=== PATIENT | female | born 1945 | race Asian ===

== ENCOUNTER 2016-10-04 21:39 | Observation (INO) | payer OTHER ==
[2016-10-04] MEDS ORDERED: ASPIRIN 81 MG CHEWABLE TABLETS PO ONE (21:49)
[2016-10-04 22:01] VITALS: BMI 29.2
--- NOTE | 2016-10-04 22:03 | PDOC ---
History of Present Illness - General History Source: Patient Exam Limitations: No Limitations - History of Present Illness Initial Comments: 10/04/16 22:43 The patient is a 71-year-old Pashto female, with a significant past medical history of thyroid disorder and cardiac disease (pt cannot specify), who presents to the ED with chest pain. Pt felt normal this morning. After eating lunch she began to experience difficulty breathing and some midsternal chest tightness. The pt tried to go to sleep by woke up again feeling short of breath. The chest tightness lasted for several hours and the shortness of breath lasted several minutes. The patients neighbor noted that the pt appeared blue in color and advised her to visit the ED. Pt reports taking baby aspirin today. The patient denies any fever, chills, nausea, vomiting, diarrhea, or abdominal pain. <Jackie Pastrana - Last Filed: 10/04/16 22:43> - General History Source: Patient Exam Limitations: No Limitations <Kevin Gage - Last Filed: 10/05/16 00:23> - General Chief Complaint: Chest Pain Stated Complaint: S.O.B. Time Seen by Provider: 10/04/16 21:48 Past History <Jackie Pastrana - Last Filed: 10/04/16 22:43> <Kevin Gage - Last Filed: 10/05/16 00:23> - Past Medical History Allergies/Adverse Reactions: Allergies Allergy/AdvReac Type Severity Reaction Status Date / Time No Known Allergies Allergy Verified 10/04/16 21:42 Home Medications: Ambulatory Orders Aspirin [ASA -] 81 mg PO DAILY 10/04/16 Review of Systems - Review of Systems Able to Perform ROS?: Yes Comments:: 10/04/16 22:43 GENERAL/CONSTITUTIONAL: No fever or chills. No weakness. HEAD, EYES, EARS, NOSE AND THROAT: No change in vision. No ear pain or discharge. No sore throat. CARDIOVASCULAR: (+)chest pain, shortness of breath. RESPIRATORY: No cough, wheezing, or hemoptysis. GASTROINTESTINAL: No nausea, vomiting, diarrhea or constipation. GENITOURINARY: No dysuria, frequency, or change in urination. MUSCULOSKELETAL: No joint or muscle swelling or pain. No neck or back pain. SKIN: No rash NEUROLOGIC: No headache, vertigo, loss of consciousness, or change in strength/ sensation. ENDOCRINE: No increased thirst. No abnormal weight change. HEMATOLOGIC/LYMPHATIC: No anemia, easy bleeding, or history of blood clots. ALLERGIC/IMMUNOLOGIC: No hives or skin allergy. <Jackie Pastrana - Last Filed: 10/04/16 22:43> *Physical Exam - Vital Signs Last Vital Signs Temp Pulse Resp BP Pulse Ox 97.3 F L 66 22 133/74 93 L 10/04/16 21:42 10/04/16 21:42 10/04/16 21:42 10/04/16 21:42 10/04/16 21:42 - Physical Exam Comments: 10/04/16 22:44 GENERAL: Awake, alert, and fully oriented, in no acute distress HEAD: No signs of trauma EYES: PERRLA, EOMI, sclera anicteric, conjunctiva clear ENT: Auricles normal inspection, hearing grossly normal, nares patent, oropharynx clear without exudates. Moist mucosa NECK: Normal ROM, supple, no lymphadenopathy, JVD, or masses LUNGS: Breath sounds equal, clear to auscultation bilaterally. No wheezes, and no crackles HEART: Regular rate and rhythm, normal S1 and S2, no murmurs, rubs or gallops ABDOMEN: Soft, nontender, normoactive bowel sounds. No guarding, no rebound. No masses EXTREMITIES: Normal range of motion, no edema. No clubbing or cyanosis. No cords, erythema, or tenderness NEUROLOGICAL: Cranial nerves II through XII grossly intact. Normal speech, normal gait SKIN: Warm, Dry, normal turgor, no rashes or lesions noted <Jackie Pastrana - Last Filed: 10/04/16 22:43> Heart Score/ECG Review #1 ECG reviewed & interpreted by me at: 22:00 10/04/16 22:26 NSR 66, TWI III, T wave flat II, avF, II, V3-V6, no std/annette, QTC 425 msec <Kevin Gage - Last Filed: 10/05/16 00:23> ED Treatment Course - LABORATORY CBC & Chemistry Diagram: 10/04/16 22:06 10/04/16 22:06 - ADDITIONAL ORDERS Additional order review: Laboratory Results 10/04/16 22:06 INR 0.99 PTT (Actin FS) 34.6 H 10/04/16 22:06 RBC 4.41 MCV 87.2 MCHC 33.8 RDW 13.2 MPV 10.5 Neutrophils % 66.4 Lymphocytes % 17.8 Monocytes % 9.8 Eosinophils % 5.3 H Basophils % 0.7 - Medications Given in the ED: ED Medications Discontinued Medications Generic Name Dose Route Start Last Admin Trade Name Félix PRN Reason Stop Dose Admin Aspirin 243 mg 10/04/16 21:49 10/04/16 22:15 Asa - PO 10/04/16 21:50 243 mg ONCE ONE Administration <Jackie Pastrana - Last Filed: 10/04/16 22:43> - LABORATORY CBC & Chemistry Diagram: 10/04/16 22:06 10/04/16 22:06 - RADIOLOGY Radiology Studies Ordered: Category Date Time Status CHEST X-RAY PORTABLE* [RAD] Stat Radiology 10/04/16 21:49 Ordered <Kevin Gage - Last Filed: 10/05/16 00:23> Medical Decision Making - Medical Decision Making 10/04/16 21:54 A portion of this note was documented by scribe services under my direction. I have reviewed the details of the note, within reason, and agree with the documentation with the following case summary and management plan written by me. Patient treated in the ED. Patient arrives by ambulance to the emergency department. Nursing notes are reviewed and incorporated into the medical decision-making. Vital signs reviewed. Peripheral IV access obtained by the nurse, laboratory studies are drawn and sent, reviewed and interpreted by myself. History taken with Pashto phone certified court interpreter. 71 year old Pashto female with history of thyroid disorder, cardiac disease ( though patient cannot specify exact cardiac disease) presents with chest pain. The patient reports that she was in her usual state of health this morning. Around lunch time, the patient was eating lunch and suddenly felt difficulty breathing and some midsternal chest tightness. There was no radiation. No vomiting. She reported that she tried to go to sleep but woke up again with shortness of breath. The chest tightness lasted for several hours and the SOB lasted several minutes. She had went to her neighbor's home and noted that she appeared dusky and bluish and her friend advised her to go to the ER. She denies recent illnesses. She reports that she had taken a baby aspirin today. Given the circumstances, the patient will need to be ruled out myocardial infarction. Will complete her aspirin, obtain a troponin and chest xray and admit the patient to the hospital. 10/05/16 00:22 Chest xray reviewed, pending official reads. no acute findings. CBC, BMP 10/04/16 22:06 10/04/16 22:06 CMP Sodium 140 mmol/L (136-145) 10/04/16 22:06 Potassium 4.0 mmol/L (3.5-5.1) 10/04/16 22:06 Chloride 107 mmol/L (98-107) 10/04/16 22:06 Carbon Dioxide 26 mmol/L (21-32) 10/04/16 22:06 Anion Gap 7 (8-16) L 10/04/16 22:06 BUN 14 mg/dL (7-18) 10/04/16 22:06 Creatinine 0.6 mg/dL (0.55-1.02) 10/04/16 22:06 Creat Clearance w eGFR > 60 (>60) 10/04/16 22:06 Random Glucose 122 mg/dL (74-106) H 10/04/16 22:06 Calcium 9.4 mg/dL (8.5-10.1) 10/04/16 22:06 Total Bilirubin 1.0 mg/dL (0.2-1.0) 10/04/16 22:06 AST 26 U/L (15-37) 10/04/16 22:06 ALT 34 U/L (12-78) 10/04/16 22:06 Alkaline Phosphatase 98 U/L (45-117) 10/04/16 22:06 Creatine Kinase 50 IU/L (26-192) 10/04/16 22:06 Troponin I < 0.02 ng/ml (0.00-0.05) 10/04/16 22:06 Total Protein 7.2 g/dl (6.4-8.2) 10/04/16 22:06 Albumin 3.7 g/dl (3.4-5.0) 10/04/16 22:06 Patient reassessed. No chest pain. Case discussed with Dr. Kurtz. Accepts patient for telemetry admission. Case discussed in detail with admitting physician including history, physical exam and ancillary studies. Admitting physician has assumed care for the patient, will follow all pending diagnostics and will complete the evaluation and treatment. <Kevin Gage - Last Filed: 10/05/16 00:23> *DC/Admit/Observation/Transfer - Attestations Scribe Attestion: 10/04/16 22:45 Documentation prepared by Jackie Pastrana, acting as director medical affairs for Kevin Gage MD. <Jackie Pastrana - Last Filed: 10/04/16 22:43> - Discharge Dispostion Admit: Yes <Kevin Gage - Last Filed: 10/05/16 00:23> Diagnosis at time of Disposition: Chest pain Qualifiers: Chest pain type: unspecified Qualified Code(s): R07.9 - Chest pain, unspecified - Discharge Dispostion Condition at time of disposition: Stable
[2016-10-04] MEDS ORDERED: ASPIRIN 81 MG CHEWABLE TABLETS ONE (22:14)
[2016-10-04 22:23] LABS: BASOPHIL 0.7 % (0-2.0); EOSINOPHIL 5.3 % (0-4.5); MCH 29.5 pg (25.7-33.7); MCHC 33.8 g/dl (32.0-36.0); MEAN CELL VOLUME 87.2 fl (80-96); MEAN PLT VOLUME 10.5 fl (7.5-11.1); NEUTROPHILS 66.4 % (42.8-82.8); PLATELET COUNT 182 K/MM3 (134-434); RDW 13.2 % (11.6-15.6); WHITE BLOOD COUNT 7.5 K/mm3 (4.0-10.0)
[2016-10-04 22:34] LABS: INR 0.99 (0.82-1.09); PROTHROMBIN TIME (PATIENT) 10.9 SEC (9.98-11.88)
[2016-10-04 22:36] LABS: ACTIVATED PTT 34.6 SECONDS (26.9-34.4)
[2016-10-04 22:51] LABS: ALBUMIN 3.7 g/dl (3.4-5.0); ANION GAP 7 (8-16); CALCIUM 9.4 mg/dL (8.5-10.1); CO2 26 mmol/L (21-32); GLUCOSE,RANDOM 122 mg/dL (74-106)
[2016-10-04 22:56] LABS: ALK PHOS 98 U/L (45-117); CREATININE 0.6 mg/dL (0.55-1.02); SGOT/AST 26 U/L (15-37); SGPT/ALT 34 U/L (12-78); TOT PROT 7.2 g/dl (6.4-8.2); TROPONIN I < 0.02 ng/ml (0.00-0.05)
--- NOTE | 2016-10-04 23:18 | PN ---
<Loida Kurtz - Last Filed: 10/04/16 23:17> Teaching Attending Note Name of Resident: Saqib Cooley <Kwame Bower - Last Filed: 10/05/16 02:24> Teaching Attending Note ATTENDING PHYSICIAN STATEMENT I saw and evaluated the patient. I reviewed the resident's note and discussed the case with the resident. I agree with the resident's findings and plan as documented. SUBJECTIVE: The patient is a 71-year-old female, who presented to the Emergency Department with chest pain. Patient reported that she was at baseline this morning but, after eating lunch she began to experience difficulty breathing and some midsternal chest tightness. The patient tried to go to sleep but woke up again feeling short of breath. The patient stated that her chest tightness lasted for several hours and her shortness of breath lasted several minutes. The patients neighbor noted that the patient appeared blue in color and advised her to visit the Emergency Department. The patient reported taking baby aspirin today to treat symptoms and noted mild alleviation. The patient denied any fever, chills, nausea, vomiting, diarrhea, or abdominal pain. Past Medical History: Thyroid disorder and cardiac disease, OBJECTIVE: Vital Signs: Last Vital Signs Temp Pulse Resp BP Pulse Ox 97.3 F L 66 22 133/74 99 10/04/16 21:42 10/04/16 21:42 10/04/16 21:42 10/04/16 21:42 10/04/16 22:38 GENERAL: Awake, alert, and fully oriented, in no acute distress HEENT: Atraumatic. PERRLA, EOMI. No JVD. (+) No thyromegaly no masses appreciated LUNGS: No distress, speaks full sentences, clear to auscultation bilaterally HEART: Regular rate and rhythm, normal S1 and S2 (+) Chest pain not reproducible on palpation. No murmursm, gallops, or rubs ABDOMEN: Soft, nontender, normoactive bowel sounds. No guarding, no rebound. No masses EXTREMITIES: Normal inspection, Normal range of motion, no edema. No clubbing or cyanosis. NEUROLOGICAL: Cranial nerves II through XII grossly intact. Normal speech, normal gait, no focal sensorimotor deficits SKIN: Warm, Dry, normal turgor, no rashes or lesions noted. Labs: CBCD WBC 7.5 K/mm3 (4.0-10.0) 10/04/16 22:06 RBC 4.41 M/mm3 (3.60-5.2) 10/04/16 22:06 Hgb 13.0 GM/dL (10.7-15.3) 10/04/16 22:06 Hct 38.5 % (32.4-45.2) 10/04/16 22:06 MCV 87.2 fl (80-96) 10/04/16 22:06 MCHC 33.8 g/dl (32.0-36.0) 10/04/16 22:06 RDW 13.2 % (11.6-15.6) 10/04/16 22:06 Plt Count 182 K/MM3 (134-434) 10/04/16 22:06 MPV 10.5 fl (7.5-11.1) 10/04/16 22:06 CMP Sodium 140 mmol/L (136-145) 10/04/16 22:06 Potassium 4.0 mmol/L (3.5-5.1) 10/04/16 22:06 Chloride 107 mmol/L (98-107) 10/04/16 22:06 Carbon Dioxide 26 mmol/L (21-32) 10/04/16 22:06 Anion Gap 7 (8-16) L 10/04/16 22:06 BUN 14 mg/dL (7-18) 10/04/16 22:06 Creatinine 0.6 mg/dL (0.55-1.02) 10/04/16 22:06 Creat Clearance w eGFR > 60 (>60) 10/04/16 22:06 Calcium 9.4 mg/dL (8.5-10.1) 10/04/16 22:06 Total Bilirubin 1.0 mg/dL (0.2-1.0) 10/04/16 22:06 AST 26 U/L (15-37) 10/04/16 22:06 ALT 34 U/L (12-78) 10/04/16 22:06 Alkaline Phosphatase 98 U/L (45-117) 10/04/16 22:06 Total Protein 7.2 g/dl (6.4-8.2) 10/04/16 22:06 Albumin 3.7 g/dl (3.4-5.0) 10/04/16 22:06 Imagin. CXR - pending official read. No acute findings. ASSESSMENT AND PLAN: 1. Chest Pain rule out ACS -Trend Troponins -Aspirin -Plavix -Torvostatin -Coreg 3.125 BID -Morphine 2 mg PRN for pain -Nitrile 0.4 sublingual PRN -2L O2 Nasal Canula -Stress test -ECHO in AM -Consider Cardiac consult Admit to telemetry. Documentation prepared by Kwame Bower, acting as durable medical equipment technician for Dr. Loida Kurtz MD.
[2016-10-05] MEDS ORDERED: morphine CARPU-JECT 2 MG/1 ML DISP.SYRIN IVPUSH PRN (01:13)
[2016-10-05] MEDS ORDERED: ACETAMINOPHEN 325 MG TABLET (FP) PO PRN (01:13)
--- NOTE | 2016-10-05 01:19 | HP ---
CHIEF COMPLAINT: CP with SOB PCP: HISTORY OF PRESENT ILLNESS: 71 year old Hebrew F with PMHx of thyroid disorder, unspecified cardiac disease presents with chest pain and SOB. The patient reports that she was in her usual state of health this morning. Around lunch time, the patient was eating lunch and suddenly felt difficulty breathing and some midsternal chest tightness. She describes intermittent non-radiating 8/10 substernal chest pressure that lasted approx 30min and associated with SOB. Denies diaphoresis, nausea, vomiting or relation to physical activity. She reported that she tried to go to sleep but woke up again with same CP and SOB. When pain did not subside she went to [facility] house who noted she appeared dusky and bluish. She was then advised to come to ER. She admits to having a cardiac cath over ten years ago but was told she did not have significant blockage and no stents at that time. She does mention some heart problem but not very specific. She mentions something about the chambers or valves? she is not sure. She reports that she had taken a baby aspirin today. At time of this H/P she says CP has subsided , denies SOB, RUANO, palptiations, abd. pain, n/v. ER course was notable for: (1)EKG-NSR 66, TWI III, T wave flat II, avF, II, V3-V6, no std/annette, QTC 425 msec (2)1st set Troponins (-); given chewable aspirin. (3)CXR- no acute pathology Recent Travel:Denies PAST MEDICAL HISTORY: Hypothyroid, unspecified hear diseas. PAST SURGICAL HISTORY: none Social History: Smoking: never smoked Alcohol: no Drugs: no Family History: (+) for HD but unsure exactly. Allergies No Known Allergies Allergy (Verified 10/04/16 21:42) HOME MEDICATIONS: Home Medications Medication Instructions Recorded Aspirin [ASA -] 81 mg PO DAILY 10/04/16 REVIEW OF SYSTEMS CONSTITUTIONAL: Absent: fever, chills, diaphoresis, generalized weakness, malaise, loss of appetite, weight change HEENT: Absent: rhinorrhea, nasal congestion, throat pain, throat swelling, difficulty swallowing, mouth swelling, ear pain, eye pain, visual changes CARDIOVASCULAR: (+) chest pain Absent:, syncope, palpitations, irregular heart rate, lightheadedness, peripheral edema RESPIRATORY: (+)shortness of breath Absent: cough, , dyspnea with exertion, orthopnea, wheezing, stridor, hemoptysis GASTROINTESTINAL: Absent: abdominal pain, abdominal distension, nausea, vomiting, diarrhea, constipation, melena, hematochezia GENITOURINARY: Absent: dysuria, frequency, urgency, hesitancy, hematuria, flank pain, genital pain MUSCULOSKELETAL: Absent: myalgia, arthralgia, joint swelling, back pain, neck pain SKIN: Absent: rash, itching, pallor HEMATOLOGIC/IMMUNOLOGIC: Absent: easy bleeding, easy bruising, lymphadenopathy, frequent infections ENDOCRINE: Absent: unexplained weight gain, unexplained weight loss, heat intolerance, cold intolerance NEUROLOGIC: Absent: headache, focal weakness or paresthesias, dizziness, unsteady gait, seizure, mental status changes, bladder or bowel incontinence PSYCHIATRIC: Absent: anxiety, depression, suicidal or homicidal ideation, hallucinations. PHYSICAL EXAMINATION Vital Signs - 24 hr 10/04/16 10/04/16 21:42 22:38 Temperature 97.3 F L Pulse Rate 66 Respiratory 22 Rate Blood Pressure 133/74 O2 Sat by Pulse 93 L 99 Oximetry (%) GENERAL: AAO x3, NAD, Hebrew speaking only. HEAD: NC/AT EYES:PERRLA,EOMI, sclera anicteric, conjunctiva clear. No lid lag. EARS, NOSE, THROAT: Ears normal, nares patent, oropharynx clear without exudates. dry mucous membranes. NECK: Normal ROM, supple ,no lymphadenopathy, JVD, or masses. LUNGS: Breath sounds equal, CTA bilat. No wheezes, and no crackles. No accessory muscle use. HEART: RRR, normal S1 and S2 no murmur, rub or gallop. ABDOMEN: Soft, nontender, not distended, normoactive bowel sounds, no guarding, no rebound, no masses. No hepatomegaly or splenomegaly. MUSCULOSKELETAL: Normal range of motion at all joints. No bony deformities or tenderness. No CVA tenderness. UPPER EXTREMITIES: 2+ pulses, warm, well-perfused. No cyanosis. No clubbing. No peripheral edema. LOWER EXTREMITIES: 2+ pulses, warm, well-perfused. No calf tenderness. trace edema. NEUROLOGICAL: Cranial nerves II-XII grossly intact. Normal speech(Hebrew). Normal gait. PSYCHIATRIC: Cooperative. Good eye contact. Appropriate mood and affect. SKIN: Warm, dry, normal turgor, no rashes or lesions noted. Laboratory Results - last 24 hr 10/04/16 10/04/16 10/04/16 22:06 22:06 22:06 WBC 7.5 RBC 4.41 Hgb 13.0 Hct 38.5 MCV 87.2 MCHC 33.8 RDW 13.2 Plt Count 182 MPV 10.5 Neutrophils % 66.4 Lymphocytes % 17.8 Monocytes % 9.8 Eosinophils % 5.3 H Basophils % 0.7 INR 0.99 PTT (Actin FS) 34.6 H Sodium 140 Potassium 4.0 Chloride 107 Carbon Dioxide 26 Anion Gap 7 L BUN 14 Creatinine 0.6 Creat Clearance w eGFR > 60 Random Glucose 122 H Calcium 9.4 Total Bilirubin 1.0 AST 26 ALT 34 Alkaline Phosphatase 98 Creatine Kinase 50 Troponin I < 0.02 Total Protein 7.2 Albumin 3.7 ASSESSMENT/PLAN: 71 year old Hebrew F with PMHx of thyroid disorder, unspecified cardiac disease admitted to R/O of . Problem List - Problem (1) Chest pain Assessment/Plan: * Admit to telemetry * Cardio Consult Dr. Bharathi lE * trend trops Q6H * EKG in am * ECHO pending. * ASA 81mg Daily * lipid panel * HgbA1c * Lipitor 80mg HS * consider starting B-jose ramon. (2) Hypothyroid Assessment/Plan: * Continue Levothyroxin 100mcg PO daily * TSH pending. (3) HLD (hyperlipidemia) Assessment/Plan: * Lipid panel * Lipitor 80mg HS (4) DVT prophylaxis Assessment/Plan: * Heparin 5000 units TID * SCD's Bilat. LE Visit type - Emergency Visit Emergency Visit: Yes Care time: The patient presented to the Emergency Department on the above date and was hospitalized for further evaluation of their emergent condition. - New Patient This patient is new to me today: Yes Date on this admission: 10/05/16 - Critical Care Critical Care patient: No
[2016-10-05] MEDS: ATORVASTATIN CA 80 MG TABLET (FP) PO SCH ×2 (01:38→22:09)
[2016-10-05 04:56] LABS: TROPONIN I < 0.02 ng/ml (0.00-0.05)
[2016-10-05] MEDS: LEVOTHYROXINE NA 100 MCG TABLET (FP) PO SCH (06:37)
[2016-10-05 08:20] LABS: BASOPHIL 0.4 % (0-2.0); EOSINOPHIL 5.2 % (0-4.5); MCH 29.3 pg (25.7-33.7); MCHC 33.7 g/dl (32.0-36.0); MEAN CELL VOLUME 87.1 fl (80-96); MEAN PLT VOLUME 10.8 fl (7.5-11.1); NEUTROPHILS 72.7 % (42.8-82.8); PLATELET COUNT 175 K/MM3 (134-434); WHITE BLOOD COUNT 6.9 K/mm3 (4.0-10.0)
--- NOTE | 2016-10-05 08:22 | PN ---
Physical Exam: SUBJECTIVE: Patient seen and examined Patient continues to have midepigastric pain / today, No fever or chills, no radiation to her neck or Jaw. who speaks Kyrgyz translated for me. OBJECTIVE: Vital Signs Temperature 97.3 F L 10/05/16 06:00 Pulse Rate 59 L 10/05/16 06:00 Respiratory Rate 18 10/05/16 06:00 Blood Pressure 116/60 10/05/16 06:00 O2 Sat by Pulse Oximetry (%) 97 10/05/16 04:13 GENERAL: The patient is awake, alert, and fully oriented, in no acute distress. HEAD: Normal with no signs of trauma. EYES: PERRL, extraocular movements intact, sclera anicteric, conjunctiva clear. ENT: Ears normal, oropharynx clear without exudates, moist mucous membranes. NECK: Trachea midline, full range of motion, supple. LUNGS: Breath sounds equal, clear to auscultation bilaterally, no wheezes, no crackles, no accessory muscle use. HEART: Regular rate and rhythm, S1, S2 without murmur, rub or gallop. ABDOMEN: Soft, nontender, nondistended, normoactive bowel sounds, no guarding, no rebound, no hepatosplenomegaly, no masses. EXTREMITIES: 2+ pulses, warm, well-perfused, no edema. NEUROLOGICAL: Cranial nerves II through XII grossly intact. Normal speech, gait not observed. PSYCH: Normal mood, normal affect. SKIN: Warm, dry, normal turgor, no rashes or lesions noted Laboratory Results - last 24 hr 10/05/16 04:15 Creatine Kinase 38 Troponin I < 0.02 Active Medications Generic Name Dose Route Start Last Admin Trade Name Freq PRN Reason Stop Dose Admin Acetaminophen 650 mg 10/05/16 01:13 Tylenol - PO Q4H PRN FEVER OR PAIN Aspirin 81 mg 10/05/16 10:00 Ecotrin - PO DAILY ALLYSSA Atorvastatin Calcium 80 mg 10/05/16 01:15 10/05/16 01:38 Lipitor - PO 80 mg HS ALLYSSA Administration Heparin Sodium (Porcine) 5,000 unit 10/05/16 10:00 Heparin - SQ BID ALLYSSA Levothyroxine Sodium 100 mcg 10/05/16 07:00 10/05/16 06:37 Synthroid - PO 100 mcg DAILY@0700 ALLYSSA Administration Metoprolol Tartrate 25 mg 10/05/16 10:00 Lopressor - PO DAILY ALLYSSA Morphine Sulfate 1 mg 10/05/16 01:13 Morphine Injection - IVPUSH Q4H PRN PAIN CBCD WBC 6.9 K/mm3 (4.0-10.0) 10/05/16 05:40 RBC 4.34 M/mm3 (3.60-5.2) 10/05/16 05:40 Hgb 12.7 GM/dL (10.7-15.3) 10/05/16 05:40 Hct 37.8 % (32.4-45.2) 10/05/16 05:40 MCV 87.1 fl (80-96) 10/05/16 05:40 MCHC 33.7 g/dl (32.0-36.0) 10/05/16 05:40 RDW 13.0 % (11.6-15.6) 10/05/16 05:40 Plt Count 175 K/MM3 (134-434) 10/05/16 05:40 MPV 10.8 fl (7.5-11.1) 10/05/16 05:40 CMP Sodium 140 mmol/L (136-145) 10/04/16 22:06 Potassium 4.0 mmol/L (3.5-5.1) 10/04/16 22:06 Chloride 107 mmol/L (98-107) 10/04/16 22:06 Carbon Dioxide 26 mmol/L (21-32) 10/04/16 22:06 Anion Gap 7 (8-16) L 10/04/16 22:06 BUN 14 mg/dL (7-18) 10/04/16 22:06 Creatinine 0.6 mg/dL (0.55-1.02) 10/04/16 22:06 Creat Clearance w eGFR > 60 (>60) 10/04/16 22:06 Random Glucose 122 mg/dL (74-106) H 10/04/16 22:06 Calcium 9.4 mg/dL (8.5-10.1) 10/04/16 22:06 Total Bilirubin 1.0 mg/dL (0.2-1.0) 10/04/16 22:06 AST 26 U/L (15-37) 10/04/16 22:06 ALT 34 U/L (12-78) 10/04/16 22:06 Alkaline Phosphatase 98 U/L (45-117) 10/04/16 22:06 Total Protein 7.2 g/dl (6.4-8.2) 10/04/16 22:06 Albumin 3.7 g/dl (3.4-5.0) 10/04/16 22:06 CARDIAC ENZYMES Creatine Kinase 38 IU/L (26-192) 10/05/16 04:15 Troponin I < 0.02 ng/ml (0.00-0.05) 10/05/16 04:15 Home Medications Medication Instructions Recorded Aspirin [ASA -] 81 mg PO DAILY 10/04/16 Levothyroxine [Synthroid -] 100 mcg PO DAILY 10/05/16 Laboratory Tests 10/05/16 10/05/16 05:40 05:40 Hemoglobin A1c % 5.6 Triglycerides 53 Cholesterol 119 Total LDL Cholesterol 68 HDL Cholesterol 56 ASSESSMENT/PLAN: 71 year old Kyrgyz F with PMHx of thyroid disorder, Gastritis with FHx of Gastric cancer unspecified cardiac disease admitted for chest pain to R/O ACS. # Acute Chest pain r/o ACS Admit to telemetry; Cardio Consult Dr. Bharathi El; trend trops Q6H x2 sets negative ;EKG ; ECHO pending. Stress test for Friday will be scheduled by . On ASA 81mg Daily, [id number]=6.6 ,Lipitor 80mg HS. # Hx of Gastritis will add protonix and maalox prn #Hx of Hypothyroid ;Continue Levothyroxin 100mcg PO daily;TSH was cancelled #Hx of HLD (hyperlipidemia) continue Lipitor 80mg HS DVT prophylaxis : Heparin Sq 5000U tid ; SCD's Bilat. LE Visit type - Emergency Visit Emergency Visit: Yes ED Registration Date: 10/05/16 Care time: The patient presented to the Emergency Department on the above date and was hospitalized for further evaluation of their emergent condition. - New Patient This patient is new to me today: Yes Date on this admission: 10/05/16 - Critical Care Critical Care patient: No
[2016-10-05 08:29] LABS: INR 1.01 (0.82-1.09); PROTHROMBIN TIME (PATIENT) 11.1 SEC (9.98-11.88)
[2016-10-05 08:48] LABS: ALBUMIN 3.5 g/dl (3.4-5.0); ANION GAP 7 (8-16); CALCIUM 9.2 mg/dL (8.5-10.1); CHOLESTEROL 119 mg/dL (50-200); CO2 27 mmol/L (21-32); GLUCOSE,RANDOM 113 mg/dL (74-106); MAGNESIUM 2.2 mg/dL (1.8-2.4); PHOSPHOROUS 2.6 mg/dL (2.5-4.9)
[2016-10-05 08:54] LABS: ALK PHOS 89 U/L (45-117); CREATININE 0.5 mg/dL (0.55-1.02); LDL CHOLESTEROL (ONLY SJRH) 68 mg/dL (5-100); SGOT/AST 18 U/L (15-37); SGPT/ALT 30 U/L (12-78); TOT PROT 6.7 g/dl (6.4-8.2)
[2016-10-05] MEDS: HEPARIN NA (PORCINE) 5,000 UNITS/ML 1ML VIAL SQ SCH ×2 (09:44→22:09)
[2016-10-05] MEDS: METOPROLOL TARTRATE 25 MG TABLET (FP) PO SCH (09:44)
[2016-10-05] MEDS: ASPIRIN COATED 81 MG TABLET.EC PO SCH (09:44)
[2016-10-05] MEDS ORDERED: MAG HYDROX/AL HYDROX/SIMETH 30 ML UNIT-DOSE CUP PO PRN (11:19)
[2016-10-05 11:48] LABS: THYROID STIMULATING HORMONE 0.51 uIU/ml (0.358-3.74)
--- NOTE | 2016-10-05 13:40 | CON.CARD ---
Consult Consult Specialty:: Cardiology Referred by:: Yeny Reason for Consultation:: Cardiac evaluation - History of Present Illness Chief Complaint: Chest pain/epigastric pain History of Present Illness: Patient is a 71 year old [place] female with history of hypothyroidism and hypercholesterolemia who presents with an episode of mid-sternal chest tightness and difficulty breathing. After eating lunch and coming home, she developed mid-sternal chest tightness which precipitated into difficulty breathing as if she was having a panic attack. She asked for help from her neighbor who noticed that her face was turning blue in color. She was brought in to [facility] for further evaluation. Currently, she states less chest tightness than on admission. She denies shortness of breath. She has intermittent palpitations, but currently appears stable. She denies fever or chills. She denies paroxysmal nocturnal dyspnea. She denies headache or lightheadedness. She denies syncope. Of note, she has had cardiac catheterization 10 years ago, but does not report any history of stents. She also has extensive history of gastric CA in the family and she has had EGD and colonoscopy last year. Polyp was taken out and EGD showed what is described as gastritis +/- GERD. - History Source History Provided By: Patient, Medical Record Limitations to Obtaining History: No Limitations - Past Medical History Cardio/Vascular: Yes: Hyperlipdemia Endocrine: Yes: Hypothyroidism - Alcohol/Substance Use Hx Alcohol Use: No - Smoking History Smoking history: Never smoked Have you smoked in the past 12 months: No Home Medications - Allergies Allergies/Adverse Reactions: Allergies Allergy/AdvReac Type Severity Reaction Status Date / Time No Known Allergies Allergy Verified 10/04/16 21:42 - Home Medications Home Medications: Ambulatory Orders Aspirin [ASA -] 81 mg PO DAILY 10/04/16 Levothyroxine [Synthroid -] 100 mcg PO DAILY 10/05/16 Family Disease History - Family Disease History Family Disease History: CA: Father (Gastric CA), Mother (Gastric CA), Brother ( Gastric CA), Sister (Gastric CA) Other Family History: She has never Review of Systems - Review of Systems Constitutional: denies: Chills, Fever Cardiovascular: reports: Chest Pain, Palpitations, Shortness of Breath Respiratory: denies: Cough, Hemoptysis, Orthopnea Gastrointestinal: denies: Abdominal Pain, Constipation, Diarrhea, Melena, Nausea , Rectal Bleeding, Vomiting Genitourinary: denies: Dysuria Musculoskeletal: denies: Joint Pain Neurological: denies: Dizziness, Headache, Numbness, Seizure, Syncope Vital Signs: Vital Signs Temperature 97.3 F L 10/05/16 08:41 Pulse Rate 68 10/05/16 08:41 Respiratory Rate 18 10/05/16 08:44 Blood Pressure 124/62 10/05/16 08:41 O2 Sat by Pulse Oximetry (%) 97 10/05/16 08:44 Neck: Yes: Supple Respiratory: Yes: CTA Bilaterally Gastrointestinal: Yes: Normal Bowel Sounds, Soft. No: Tenderness Cardiovascular: Yes: Regular Rate and Rhythm JVD: No Carotid Bruit: No PMI: Non-Displaced Heart Sounds: Yes: S1, S2 Edema: No - Other Data Labs, Other Data: CBC, BMP 10/05/16 05:40 10/05/16 05:40 INR, PTT INR 1.01 (0.82-1.09) 10/05/16 05:40 Troponin, BNP 10/05/16 04:15 Troponin I < 0.02 Laboratory Results - last 24 hr 10/05/16 10/05/16 10/05/16 04:15 05:40 05:40 WBC 6.9 RBC 4.34 Hgb 12.7 Hct 37.8 MCV 87.1 MCHC 33.7 RDW 13.0 Plt Count 175 MPV 10.8 Neutrophils % 72.7 Lymphocytes % 14.6 Monocytes % 7.1 Eosinophils % 5.2 H Basophils % 0.4 INR Sodium Potassium Chloride Carbon Dioxide Anion Gap BUN Creatinine Creat Clearance w eGFR Random Glucose Hemoglobin A1c % Calcium Phosphorus Magnesium Total Bilirubin AST ALT Alkaline Phosphatase Creatine Kinase 38 Troponin I < 0.02 Total Protein Albumin Triglycerides Cholesterol Total LDL Cholesterol HDL Cholesterol TSH Cancelled 10/05/16 10/05/16 10/05/16 05:40 05:40 05:40 WBC RBC Hgb Hct MCV MCHC RDW Plt Count MPV Neutrophils % Lymphocytes % Monocytes % Eosinophils % Basophils % INR 1.01 Sodium 145 Potassium 4.3 Chloride 111 H Carbon Dioxide 27 Anion Gap 7 L BUN 11 D Creatinine 0.5 L Creat Clearance w eGFR > 60 Random Glucose 113 H Hemoglobin A1c % 5.6 Calcium 9.2 Phosphorus 2.6 Magnesium 2.2 Total Bilirubin 1.0 AST 18 D ALT 30 Alkaline Phosphatase 89 Creatine Kinase Troponin I Total Protein 6.7 Albumin 3.5 Triglycerides 53 Cholesterol 119 Total LDL Cholesterol 68 HDL Cholesterol 56 TSH 0.51 Sinus rhythm with nonspecific T wave abnormality Imaging - Results Chest X-ray: Report Reviewed (Unremarkable) EKG: Report Reviewed Problem List - Problems (1) Chest pain Code(s): R07.9 - CHEST PAIN, UNSPECIFIED Qualifiers: Chest pain type: unspecified Qualified Code(s): R07.9 - Chest pain, unspecified (2) Hypothyroid Code(s): E03.9 - HYPOTHYROIDISM, UNSPECIFIED Qualifiers: Hypothyroidism type: acquired Qualified Code(s): E03.9 - Hypothyroidism, unspecified (3) Hypercholesterolemia Code(s): E78.0 - PURE HYPERCHOLESTEROLEMIA * DO NOT USE * Assessment/Plan 1. Chest pain syndrome, rule out CAD 2. Hypercholesterolemia 3. Hyothyroidism PLAN: 1. Serial cardiac enzymes 2. ASA as tolerated 3. Decrease Lipitor dose 4. Currently on Lopressor (further instruction to follow) 5. Transthoracic echocardiography to assess LV and valvular function 6. Consider nuclear myocardial perfusion imaging 7. Further GI work up to follow. Continue Protonix Further plans are to follow Bharathi El MD
[2016-10-06] MEDS: LEVOTHYROXINE NA 100 MCG TABLET (FP) PO SCH (06:47)
[2016-10-06 08:58] VITALS: BP 132/74; PULSE 70; TEMP 96.5
[2016-10-06] MEDS: HEPARIN NA (PORCINE) 5,000 UNITS/ML 1ML VIAL SQ SCH (09:18)
[2016-10-06] MEDS: ASPIRIN COATED 81 MG TABLET.EC PO SCH (09:18)
[2016-10-06] MEDS: METOPROLOL TARTRATE 25 MG TABLET (FP) PO SCH (09:19)
[2016-10-06] MEDS ORDERED: PANTOPRAZOLE 40 MG TABLET (FP) PO SCH (10:00)
--- NOTE | 2016-10-06 10:19 | PN ---
Progress Note, Physician Chief Complaint: Not in distress History of Present Illness: Patient was seen and examined. Awake and alert. Chart was reviewed Denies chest pain today. Denies SOB or palpitations - Current Medication List Current Medications: Active Medications Acetaminophen (Tylenol -) 650 mg PO Q4H PRN PRN Reason: FEVER OR PAIN Al Hydroxide/Mg Hydroxide (Mylanta Oral Suspension -) 30 ml PO Q8H PRN PRN Reason: DYSPEPSIA Aspirin (Ecotrin -) 81 mg PO DAILY [facility] Last Admin: 10/06/16 09:18 Dose: 81 mg Atorvastatin Calcium (Lipitor -) 80 mg PO HS [facility] Last Admin: 10/05/16 22:09 Dose: 80 mg Heparin Sodium (Porcine) (Heparin -) 5,000 unit SQ BID [facility] Last Admin: 10/06/16 09:18 Dose: 5,000 unit Levothyroxine Sodium (Synthroid -) 100 mcg PO DAILY@0700 [facility] Last Admin: 10/06/16 06:47 Dose: 100 mcg Metoprolol Tartrate (Lopressor -) 25 mg PO DAILY [facility] Last Admin: 10/06/16 09:19 Dose: 25 mg Morphine Sulfate (Morphine Injection -) 1 mg IVPUSH Q4H PRN PRN Reason: PAIN Pantoprazole Sodium (Protonix -) 40 mg PO DAILY [facility] Last Admin: 10/06/16 09:18 Dose: 40 mg - Objective Vital Signs: Vital Signs Temperature 96.5 F L 10/06/16 08:52 Pulse Rate 70 10/06/16 08:52 Respiratory Rate 18 10/06/16 08:52 Blood Pressure 132/74 10/06/16 08:52 O2 Sat by Pulse Oximetry (%) 95 10/05/16 21:00 Neck: Yes: Supple Cardiovascular: Yes: Regular Rate and Rhythm, S1, S2 Respiratory: Yes: CTA Bilaterally Gastrointestinal: Yes: Normal Bowel Sounds, Soft. No: Tenderness Edema: No Additional Findings/Remarks: - Review of Systems Constitutional: denies: Chills, Fever Cardiovascular: reports: Chest Pain, Palpitations, Shortness of Breath Respiratory: denies: Cough, Hemoptysis, Orthopnea Gastrointestinal: denies: Abdominal Pain, Constipation, Diarrhea, Melena, Nausea , Rectal Bleeding, Vomiting Genitourinary: denies: Dysuria Musculoskeletal: denies: Joint Pain Neurological: denies: Dizziness, Headache, Numbness, Seizure, Syncope Labs: CBC, BMP 10/05/16 05:40 10/05/16 05:40 INR, PTT INR 1.01 (0.82-1.09) 10/05/16 05:40 Problem List - Problems (1) Chest pain Code(s): R07.9 - CHEST PAIN, UNSPECIFIED Qualifiers: Chest pain type: unspecified Qualified Code(s): R07.9 - Chest pain, unspecified (2) Hypothyroid Code(s): E03.9 - HYPOTHYROIDISM, UNSPECIFIED Qualifiers: Hypothyroidism type: acquired Qualified Code(s): E03.9 - Hypothyroidism, unspecified (3) Hypercholesterolemia Code(s): E78.0 - PURE HYPERCHOLESTEROLEMIA * DO NOT USE * Assessment/Plan 1. Chest pain syndrome, rule out CAD 2. Hypercholesterolemia 3. Hyothyroidism PLAN: 1. Serial cardiac enzymes - troponins negative 2. ASA as tolerated 3. Decrease Lipitor dose 4. Currently on Lopressor (further instruction to follow) 5. Transthoracic echocardiography to assess LV and valvular function 6. Consider nuclear myocardial perfusion imaging 7. Further GI work up to follow. Continue Protonix Further plans are to follow Bharathi El MD
--- NOTE | 2016-10-06 11:51 | DS ---
Physical Exam: SUBJECTIVE: Patient seen and examined Patient is comfortable with no acute distress, no nausea or vomiting, no shortness of breath, no further chest pain. OBJECTIVE: Vital Signs Temperature 96.5 F L 10/06/16 08:52 Pulse Rate 70 10/06/16 08:52 Respiratory Rate 18 10/06/16 08:52 Blood Pressure 132/74 10/06/16 08:52 O2 Sat by Pulse Oximetry (%) 96 10/06/16 11:24 PHYSICAL EXAM GENERAL: The patient is awake, alert, and fully oriented, in no acute distress. HEAD: Normal with no signs of trauma. EYES: PERRL, extraocular movements intact, sclera anicteric, conjunctiva clear. ENT: Ears normal, oropharynx clear without exudates, moist mucous membranes. NECK: Trachea midline, full range of motion, supple. LUNGS: Breath sounds equal, clear to auscultation bilaterally, no wheezes, no crackles, no accessory muscle use. HEART: Regular rate and rhythm, S1, S2 without murmur, rub or gallop. ABDOMEN: Soft, nontender, nondistended, normoactive bowel sounds, no guarding, no rebound, no masses appreciated EXTREMITIES: 2+ pulses, warm, well-perfused, no edema. NEUROLOGICAL: Cranial nerves II through XII grossly intact. Normal speech, gait not observed. PSYCH: Normal mood, normal affect. SKIN: Warm, dry, normal turgor, no rashes or lesions noted. LABS CBCD WBC 6.9 K/mm3 (4.0-10.0) 10/05/16 05:40 RBC 4.34 M/mm3 (3.60-5.2) 10/05/16 05:40 Hgb 12.7 GM/dL (10.7-15.3) 10/05/16 05:40 Hct 37.8 % (32.4-45.2) 10/05/16 05:40 MCV 87.1 fl (80-96) 10/05/16 05:40 MCHC 33.7 g/dl (32.0-36.0) 10/05/16 05:40 RDW 13.0 % (11.6-15.6) 10/05/16 05:40 Plt Count 175 K/MM3 (134-434) 10/05/16 05:40 MPV 10.8 fl (7.5-11.1) 10/05/16 05:40 CMP Sodium 145 mmol/L (136-145) 10/05/16 05:40 Potassium 4.3 mmol/L (3.5-5.1) 10/05/16 05:40 Chloride 111 mmol/L (98-107) H 10/05/16 05:40 Carbon Dioxide 27 mmol/L (21-32) 10/05/16 05:40 Anion Gap 7 (8-16) L 10/05/16 05:40 BUN 11 mg/dL (7-18) D 10/05/16 05:40 Creatinine 0.5 mg/dL (0.55-1.02) L 10/05/16 05:40 Creat Clearance w eGFR > 60 (>60) 10/05/16 05:40 Random Glucose 113 mg/dL (74-106) H 10/05/16 05:40 Calcium 9.2 mg/dL (8.5-10.1) 10/05/16 05:40 Total Bilirubin 1.0 mg/dL (0.2-1.0) 10/05/16 05:40 AST 18 U/L (15-37) D 10/05/16 05:40 ALT 30 U/L (12-78) 10/05/16 05:40 Alkaline Phosphatase 89 U/L (45-117) 10/05/16 05:40 Total Protein 6.7 g/dl (6.4-8.2) 10/05/16 05:40 Albumin 3.5 g/dl (3.4-5.0) 10/05/16 05:40 CARDIAC ENZYMES Creatine Kinase 38 IU/L (26-192) 10/05/16 04:15 Troponin I < 0.02 ng/ml (0.00-0.05) 10/06/16 10:15 Current Medications Generic Name Dose Route Start Last Admin Trade Name Freq PRN Reason Stop Dose Admin Acetaminophen 650 mg 10/05/16 01:13 Tylenol - PO Q4H PRN FEVER OR PAIN Al Hydroxide/Mg Hydroxide 30 ml 10/05/16 11:19 Mylanta Oral Suspension - PO Q8H PRN DYSPEPSIA Aspirin 81 mg 10/05/16 10:00 10/06/16 09:18 Ecotrin - PO 81 mg DAILY [facility]YSS[facility] Administration Heparin Sodium (Porcine) 5,000 unit 10/05/16 10:00 10/06/16 09:18 Heparin - SQ 5,000 unit BID ALLYSSA Administration Levothyroxine Sodium 100 mcg 10/05/16 07:00 10/06/16 06:47 Synthroid - PO 100 mcg DAILY@0700 ALLYSS[facility] Administration Metoprolol Tartrate 25 mg 10/05/16 10:00 10/06/16 09:19 Lopressor - PO 25 mg DAILY [facility]SS[facility] Administration Morphine Sulfate 1 mg 10/05/16 01:13 Morphine Injection - IVPUSH Q4H PRN PAIN Pantoprazole Sodium 40 mg 10/06/16 10:00 10/06/16 09:18 Protonix - PO 40 mg DAILY [facility]SS[facility] Administration Home Medications Medication Instructions Recorded Aspirin [ASA -] 81 mg PO DAILY 10/04/16 Levothyroxine [Synthroid -] 100 mcg PO DAILY 10/05/16 Pantoprazole Sodium [Protonix -] 40 mg PO DAILY #30 tablet.ec 10/06/16 HOSPITAL COURSE: Date of Admission:10/06/16 Date of Discharge: 10/06/16 71 year old La[place] F with PMHx of thyroid disorder, Gastritis with FHx of Gastric cancer unspecified cardiac disease admitted for chest pain to [facility]. # Acute Chest pain ;GA is ruled out . Patient is chest pain free. Discussed with will see the patient as an outpatient for a stress test .EKG: nonspecific changes ; ECHO as an outpatient . Stress test as an outpatient. Family at bedside . Continue ASA 81mg po Daily, Lipitor 80mg HS continue. Discussed with is ok with the discharge. # Hx of Gastritis seems like having Gastritis symptoms will add protonix to go home with. #Hx of Hypothyroid ;Continue Levothyroxin 100mcg PO daily #Hx of HLD (hyperlipidemia) continue Lipitor 80mg HS discharge time 35minutes Minutes to complete discharge: 35 Discharge Summary Reason For Visit: CHEST PAIN Current Active Problems Chest pain (Acute) DVT prophylaxis (Acute) Hypercholesterolemia (Acute) Hypothyroid (Acute) Condition: Stable - Instructions Diet, Activity, Other Instructions: low sodium diet follow with the bottom precipitator operator for a stress test, call tomorrow 10/07/2016 for an appointment. Referrals: Bharathi El MD [Staff Physician] - 1 Week (call the office tomorrow 10/06/2016 for an appointment for a stress test) Disposition: HOME - Home Medications Comprehensive Discharge Medication List: Ambulatory Orders Aspirin [ASA -] 81 mg PO DAILY 10/04/16 Levothyroxine [Synthroid -] 100 mcg PO DAILY 10/05/16 Pantoprazole Sodium [Protonix -] 40 mg PO DAILY #30 tablet.ec 10/06/16 This patient is new to me today: No Emergency Visit: Yes ED Registration Date: 10/06/16 Care time: The patient presented to the Emergency Department on the above date and was hospitalized for further evaluation of their emergent condition. Critical Care patient: No - Discharge Referral Referred to [facility] Med [facility] No
--- NOTE | 2016-10-06 21:47 | EKG ---
Test Reason : Blood Pressure : / mmHG Vent. Rate : 066 BPM Atrial Rate : 066 BPM P-R Int : 138 ms QRS Dur : 080 ms QT Int : 406 ms P-R-T Axes : 053 -02 -04 degrees QTc Int : 425 ms NORMAL SINUS RHYTHM RSR' OR QR PATTERN IN V1 SUGGESTS RIGHT VENTRICULAR CONDUCTION DELAY NONSPECIFIC T WAVE ABNORMALITY ABNORMAL ECG NO PREVIOUS ECGS AVAILABLE Confirmed by KAVITHA ODONNELL, DANICA ([id number]) on 10/06/2016 9:47:28 PM Referred By: Confirmed By:DANICA PLUMMER MD
== END 2016-10-06 12:26 | disposition home or self-care (01) ==
LOC: JER 21:39 → JERBED 10-05 00:23 → UNDOADMOB 10-05 00:23 → INTOOBSV 10-05 00:23 → UNDOADMIN 10-05 00:38 → JERBED 10-05 00:38 → J4W 10-05 02:18 → JERBED 10-05 02:18 → J4W 10-06 11:24
PROVIDERS: ADMIT Internal Medicine; ATTEND Internal Medicine
DX: R07.89 Other chest pain (principal); E03.9 Hypothyroidism, unspecified; E78.5 Hyperlipidemia, unspecified; K29.60 Other gastritis without bleeding
CPT/HCPCS: 36415; 71010-TC; 80053; 80061; 82550; 83036; 83721; 83735; 84100; 84443; 84484; 85025; 85610; 85730; 93005; 93010; 99284-25; G0378; J1644